=== PATIENT | female | born 1960 | race Caucasian/White ===

== ENCOUNTER 2017-10-20 15:24 | Emergency (ER) | payer BC ==
[2017-10-20] MEDS ORDERED: KETOROLAC 30 MG/ML INJ ONE (16:39)
[2017-10-20] MEDS ORDERED: CYCLOBENZAPRINE 10 MG TAB ONE (16:39)
--- NOTE | 2017-10-20 16:41 | EDPHYS ---
Physician Documentation [facility] Name: Jana Fraser Age: 57 yrs Sex: Female : 1960 Arrival Date: 10/20/2017 Time: 15:27 Bed 30 Private MD: Ansley Irby K ED Physician Dioni Joseph HPI: 10/20 16:39 This 57 yrs old Female presents to ER via Ambulatory with complaints of Low kb Back Pain. 16:39 The patient presents with pain that is acute, and tenderness. The symptoms are located kb in the low back. The pain does not radiate. The problem was sustained when bending over. Onset: The symptoms/episode began/occurred 4 day(s) ago. Modifying factors: The patient symptoms are alleviated by nothing, the patient symptoms are aggravated by bending, reaching in front of her. Associated signs and symptoms: The patient has no apparent associated signs or symptoms. Severity of symptoms: At their worst the symptoms were moderate, in the emergency department the symptoms have improved, mildly. The patient has experienced similar episodes in the past, a few times. The patient has not recently seen a physician. Historical: - Allergies: 15:44 sulfamethoxazole-trimethoprim; ph - Home Meds: 15:44 amlodipine oral [Active]; Lisinopril Oral [Active]; ph - PMHx: 15:44 Hypertension; ph - PSHx: 15:44 Appendectomy; ph - Immunization history:: Adult Immunizations up to date. - Social history:: Smoking status: Patient/guardian denies using tobacco. - Ebola Screening: : No symptoms or risks identified at this time. ROS: 16:38 Constitutional: Negative for fever, chills, and weight loss, Cardiovascular: Negative kb for chest pain, palpitations, and edema, Respiratory: Negative for shortness of breath, cough, wheezing, and pleuritic chest pain, Abdomen/GI: Negative for abdominal pain, nausea, vomiting, diarrhea, and constipation, : Negative for injury, bleeding, discharge, and swelling, MS/Extremity: Negative for injury and deformity, Skin: Negative for injury, rash, and discoloration, Neuro: Negative for headache, weakness, numbness, tingling, and seizure. 16:38 Back: Positive for pain with movement, of the low back area, Negative for injury or acute deformity, decreased range of motion, radiated pain. Exam: 16:38 Constitutional: This is a well developed, well nourished patient who is awake, alert, kb and in no acute distress. Head/Face: Normocephalic, atraumatic. Chest/axilla: Normal chest wall appearance and motion. Nontender with no deformity. No lesions are appreciated. Cardiovascular: Regular rate and rhythm with a normal S1 and S2. No gallops, murmurs, or rubs. Normal PMI, no JVD. No pulse deficits. Respiratory: Lungs have equal breath sounds bilaterally, clear to auscultation and percussion. No rales, rhonchi or wheezes noted. No increased work of breathing, no retractions or nasal flaring. Abdomen/GI: Soft, non-tender, with normal bowel sounds. No distension or tympany. No guarding or rebound. No evidence of tenderness throughout. Skin: Warm, dry with normal turgor. Normal color with no rashes, no lesions, and no evidence of cellulitis. MS/ Extremity: Pulses equal, no cyanosis. Neurovascular intact. Full, normal range of motion. Neuro: Awake and alert, GCS 15, oriented to person, place, time, and situation. Cranial nerves II-XII grossly intact. Motor strength 5/5 in all extremities. Sensory grossly intact. Cerebellar exam normal. Normal gait. 16:38 Back: pain, that is mild, that is moderate, of the low back area, ROM is normal, normal spinal alignment noted. Vital Signs: 15:42 BP 129 / 68; Pulse 83; Resp 18; Temp 98.5; Pulse Ox 98% on R/A; Weight 79.38 kg; Height ph 5 ft. 0 in. (152.40 cm); Pain 7/10; 15:42 Body Mass Index 34.18 (79.38 kg, 152.40 cm) ph MDM: 16:11 Patient medically screened. kb 16:37 Data reviewed: vital signs, nurses notes. Data interpreted: Pulse oximetry: on room air kb is 98 %. Interpretation: normal. Counseling: I had a detailed discussion with the patient and/or guardian regarding: the historical points, exam findings, and any diagnostic results supporting the discharge/admit diagnosis, the need for outpatient follow up, a family practitioner, to return to the emergency department if symptoms worsen or persist or if there are any questions or concerns that arise at home. Administered Medications: 16:35 Drug: TORadol 60 mg Route: IM; Site: right gluteus; sv 16:52 Follow up: Response: No adverse reaction sv 16:35 Drug: Flexeril 10 mg Route: PO; sv 16:52 Follow up: Response: No adverse reaction sv Disposition: 10/21 07:00 Co-signature as Attending Physician, Dioni Joseph MD I agree with the assessment and michael plan of care. Disposition: 10/20/17 16:41 Discharged to Home. Impression: Low back pain. - Condition is Stable. - Discharge Instructions: Back Injury Prevention, [id number], Back Pain, Adult, Zutt-jy-Tetk, Back Exercises, [id number]. - Prescriptions for Cyclobenzaprine 10 mg Oral Tablet - take 1 tablet by ORAL route every 8 hours As needed; 21 tablet. Diclofenac Sodium 75 mg Oral Tablet, Delayed Release (E.C.) - take 1 tablet by ORAL route 2 times per day As needed; 30 tablet. - Medication Reconciliation Form, Thank You Letter, Antibiotic Education, Prescription Opioid Use form. - Follow up: Emergency Department; When: As needed; Reason: Worsening of condition. Follow up: Ansley Irby MD; When: 2 - 3 days; Reason: Recheck today's complaints, Continuance of care, Re-evaluation by your physician. Signatures: Tanja Laureano FNP-Kavitha HARTLEY-Denise Brady RN RN sv Anderson, Corey, MD MD cha Hall, Patricia RN RN ph Corrections: (The following items were deleted from the chart) 10/20 16:53 16:41 10/20/2017 16:41 Discharged to Home. Impression: Low back pain. Condition is sv Stable. Forms are Medication Reconciliation Form, Thank You Letter, Antibiotic Education, Prescription Opioid Use. Follow up: Emergency Department; When: As needed; Reason: Worsening of condition. Follow up: Ansley Irby; When: 2 - 3 days; Reason: Recheck today's complaints, Continuance of care, Re-evaluation by your physician. kb
--- NOTE | 2017-10-20 16:41 | ER ---
Nurse's Notes [facility] Name: Jana Fraser Age: 57 yrs Sex: Female : 1960 Arrival Date: 10/20/2017 Time: 15:27 Bed 30 Private MD: Ansley Irby K Diagnosis: Low back pain Presentation: 10/20 15:39 Presenting complaint: Patient states: " My back went out on when I bent over ph to pick something up. This has happened before and usually I can doctor myself and it'll go away but this time it hasn't." Pt reports pain in lower back that radiates to L buttocks, also reports nausea, denies vomiting. Transition of care: patient was not received from another setting of care. Onset of symptoms was October 20, 2017. Risk Assessment: Do you want to hurt yourself or someone else? Patient reports no desire to harm self or others. Initial Sepsis Screen: Does the patient meet any 2 criteria? No. Patient's initial sepsis screen is negative. Does the patient have a suspected source of infection? No. Patient's initial sepsis screen is negative. Care prior to arrival: Medication(s) given: 3 Aleeves at 1300. 15:39 Method Of Arrival: Ambulatory ph 15:39 Acuity: GAURANG 4 ph Historical: - Allergies: 15:44 sulfamethoxazole-trimethoprim; ph - Home Meds: 15:44 amlodipine oral [Active]; Lisinopril Oral [Active]; ph - PMHx: 15:44 Hypertension; ph - PSHx: 15:44 Appendectomy; ph - Immunization history:: Adult Immunizations up to date. - Social history:: Smoking status: Patient/guardian denies using tobacco. - Ebola Screening: : No symptoms or risks identified at this time. Screenin:13 Abuse screen: Denies threats or abuse. Denies injuries from another. Nutritional sv screening: No deficits noted. Tuberculosis screening: No symptoms or risk factors identified. Fall Risk None identified. Assessment: 16:14 General: Appears uncomfortable, well developed, Behavior is calm, cooperative, sv appropriate for age, Pt ambulated to the room. Pain: Complains of pain in low back area Pain currently is 7 out of 10 on a pain scale. Neuro: Level of Consciousness is awake, alert, obeys commands, Oriented to person, place, time, situation, Moves all extremities. Full function Gait is steady, Speech is normal. Respiratory: Respiratory effort is even, unlabored, Respiratory pattern is regular, symmetrical. Derm: Skin is pink, warm \\T\\ dry. Musculoskeletal: Range of motion: intact in all extremities. 16:52 Reassessment: Patient appears in no apparent distress at this time. No changes from sv previously documented assessment. Patient and/or family updated on plan of care and expected duration. Pain level reassessed. Patient is alert, oriented x 3, equal unlabored respirations, skin warm/dry/pink. Vital Signs: 15:42 BP 129 / 68; Pulse 83; Resp 18; Temp 98.5; Pulse Ox 98% on R/A; Weight 79.38 kg; Height ph 5 ft. 0 in. (152.40 cm); Pain 7/10; 15:42 Body Mass Index 34.18 (79.38 kg, 152.40 cm) ph ED Course: 15:27 Patient arrived in ED. sb2 15:28 Ansley Irby MD is Private Physician. sb2 15:42 Triage completed. ph 15:44 Arm band placed on. ph 16:11 Tanja Laureano, ESPERANZA is PHCP. kb 16:11 Dioni Joseph MD is Attending Physician. kb 16:13 Denise Espana, LUIS is Primary Nurse. sv 16:13 Patient has correct armband on for positive identification. Bed in low position. Call sv light in reach. Adult w/ patient. Door closed. Head of bed elevated. 16:40 Ansley Irby MD is Referral Physician. kb 16:52 No provider procedures requiring assistance completed. Patient did not have IV access sv during this emergency room visit. Administered Medications: 16:35 Drug: TORadol 60 mg Route: IM; Site: right gluteus; sv 16:52 Follow up: Response: No adverse reaction sv 16:35 Drug: Flexeril 10 mg Route: PO; sv 16:52 Follow up: Response: No adverse reaction sv Outcome: 16:41 Discharge ordered by . kb 16:52 Discharged to home ambulatory, with family. sv 16:52 Condition: stable 16:52 Discharge instructions given to patient, Instructed on discharge instructions, follow up and referral plans. medication usage, Demonstrated understanding of instructions, follow-up care, medications, Prescriptions given X 2. 16:53 Patient left the ED. sv Signatures: Tanja Laureano, COLTC NAEEM-Denise Brady RN RN Haley Cohen, RN RN Favio, Maryse gr2
[2017-10-20 16:56] VITALS: BP 129/68; TEMP 98.5; O2SAT 98
== END 2017-10-20 16:53 | disposition home or self-care (01) ==
LOC: ER 15:24
DX: M54.5 Low back pain (principal); Z88.2 Allergy status to sulfonamides; I10 Essential (primary) hypertension
CPT/HCPCS: 96372; 99283

== ENCOUNTER 2022-04-08 10:49 | Emergency (ER) | payer OTHER ==
--- OUTSIDE RECORDS SUMMARY | 2022-04-08 10:51 | XMS REPORT | Continuity of Care Document ---
:1960 Author Organization [facility] t Address [address] [place] [address] Care Team Providers Name Role Phone Sissy Yu MA Attending Clinician Unavailable Lab, Adc Fam Pob I Attending Clinician Unavailable Clarissa Toro Attending Clinician CLARISSA TORO Attending Clinician Unavailable Doctor Unassigned, [place] Attending Clinician Unavailable Payers Payer Name Policy Type Policy Number Effective Date Expiration Date S ource Problems This patient has no known problems. Allergies, Adverse Reactions, Alerts Allergy Allergy Status Severity Reaction(s) Onset Inactive Treating Comm ents Source Name Type Date Date Clinician NO KNOWN Drug Active Univers ALLERGIE Class it[facility] of [facility] Social History Social Habit Start Date Stop Date Quantity Comments [facility] to SARS[facility]2 Not sure [facility] [place] [facility] Smoking Status Start Date Stop Date Source Unknown if ever smoked [facility] y [facility] Medications This patient has no known medications. Procedures This patient has no known procedures. Encounters Start End Encounter Admission Attending Care Care Encounter Source Date/Time Date/Time Type Type Clinicians Facility Department ID 2019-11-14 2019-11-14 Telephone CHAD Yu [id number] Univers 00:00:00 00:00:00 Sissy [facility] [id number] ity [facility] [id number] Michel as Profpepeio [phone] [place] [address] 2019-11-11 2019-11-11 Laboratory Lab, Adc Fam Pob I [facility] [id number] Univers 14:00:05 14:20:05 Only Clarissa Toro [facility] [id number] [facility] [place] [id number] Michel as Evelyn [phone] Ga dical [facility] [address] 2019-11-11 2019-11-11 Outpatient R CORTEZ, [facility] [id number] Univers 13:40:00 13:40:00 CLARISSA loera of [facility] 2019-11-11 2019-11-11 Letter Doctor NAZANIN [id number] Univers 00:00:00 00:00:00 (Out) Unassigned, JEFF [id number] ity of [place] [facility] [id number] Michel as [phone] [address] Results Test Description Test Time Test Comments Results Result Sour e Comments SCR MAMM 2019-08-25 - SCR MAMM BILATERAL BILATERAL KRISTINE 13:28:38 KRISTINE CAD CAD DIGITAL DIGITALBILATERAL DIGITAL SCREENING MAMMOGRAM 3D/2D WITH CAD: 08/17/2019CLINICAL: Asymptomatic. Digital breast tomosynthesis was performed in addition to routine CC and MLO views. Current mammographic images were evaluated by either a [employer] M-Vu or a [employer] ImageChecker CAD (computer aided detection system). Comparison is made to exams dated 08/14/2018 mammogram, 01/11/2017 mammogram - [facility], and 10/07/2008 mammogram - [facility]. The tissue of both breasts is heterogeneously dense. This may lower the sensitivity of mammography. No suspicious mass, architectural distortion, malignant type calcification, or lymph node abnormality detected. Breast architecture is stable compared to prior exams.IMPRESSION: NEGATIVEThere is no mammographic evidence of malignancy. Resume annual screening mammography in one year. Leandro Gastelum M.D. et/penrad:08/25/2019 13:28:38 Entry: cl - 08/25/2019 13:28:38Imaging Technologist: Grace Martini MM, [facility] sent: BIRADS 1-2 Normal Mammogram BI-RADS: 1 Negative SCR MAMM 2018-08-15 - SCR MAMM BILATERAL BILATERAL KRISTINE 15:15:44 KRISTINE CAD CAD DIGITAL DIGITALBILATERAL DIGITAL SCREENING MAMMOGRAM 3D/2D WITH CAD: 08/14/2018CLINICAL: Asymptomatic. Digital breast tomosynthesis was performed in addition to routine CC and MLO views. Current mammographic images were evaluated by either a [employer] M-Vu or a [employer] ImageChecker CAD (computer aided detection system). Comparison is made to exams dated 01/11/2017 mammogram - [facility] and 10/07/2008 mammogram - [facility]. The tissue of both breasts is heterogeneously dense. This may lower the sensitivity of mammography. No suspicious mass, architectural distortion, malignant type calcification, or lymph node abnormality detected. Breast architecture is stable compared to prior exams.IMPRESSION: NEGATIVEThere is no mammographic evidence of malignancy. Resume annual screening mammography in one year. Angi blair/caesar:08/15/2018 15:15:44 Attending Technologist: Celo Saez MM, [facility] MammographyImaging Technologist: Jeanie Ellington MM, [facility] Mammographyletter sent: BIRADS 1-2 Normal Mammogram BI-RADS: 1 Negative
[2022-04-08] MEDS ORDERED: HYDROCODONE/APAP 5/325 MG TAB ONE (11:05)
--- NOTE | 2022-04-08 11:48 | RAD REPORT ---
EXAM DESCRIPTION: RAD - Wrist Left 3 View - 04/08/2022 11:27 am CLINICAL HISTORY: wrist pain, swelling Pain COMPARISON: No comparisons FINDINGS: Impacted fracture of the distal radius is present with significant surrounding soft tissue swelling. No dislocation.
--- NOTE | 2022-04-08 13:24 | EDPHYS ---
Physician Documentation [facility] Name: Jana Fraser Age: 62 yrs Sex: Female : 1960 Arrival Date: 04/08/2022 Time: 10:51 Bed 13 Private MD: MAGDALENO Physician Dioni Joseph HPI: 04/08 10:55 This 62 yrs old Female presents to ER via Ambulatory with complaints of Fall Injury, jmm Hand Injury, Wrist Injury. 10:55 Onset: The symptoms/episode began/occurred acutely, yesterday. Is a 62-year-old female jmm with history of hypertension and hyperlipidemia the presents emerged part with complaints of left wrist pain which occurred after a fall while dancing last night. Patient denies back pain, headache, neck pain.. Historical: - Allergies: 10:59 sulfamethoxazole-trimethoprim; ll1 - PMHx: 10:59 Hypertension; Hypercholesterolemia; ll1 - PSHx: 10:59 None; ll1 - Immunization history:: Client reports receiving the 2nd dose of the Covid vaccine. - Social history:: Smoking status: Patient reports the use of cigarette tobacco products, smokes one pack cigarettes per day. ROS: 10:55 Constitutional: Negative for fever, chills, and weight loss, Cardiovascular: Negative jm for chest pain, palpitations, and edema, Respiratory: Negative for shortness of breath, cough, wheezing, and pleuritic chest pain. 10:55 MS/extremity: Positive for pain, swelling. 10:55 All other systems are negative. Exam: 10:55 Constitutional: This is a well developed, well nourished patient who is awake, alert, jmm and in no acute distress. Head/Face: atraumatic. Eyes: EOMI, no conjunctival erythema appreciated ENT: Moist Mucus Membranes Neck: Trachea midline, Supple Chest/axilla: Normal chest wall appearance and motion. Cardiovascular: Regular rate and rhythm. No edema appreciated Respiratory: Normal respirations, no respiratory distress appreciated Abdomen/GI: Non distended Back: Normal ROM Skin: General appearance color normal 10:55 Musculoskeletal/extremity: Swelling noted to the left wrist, full radial pulse, compartments are soft, sensation intact, neurovascular intact. 10:55 Skin: Appearance: Color: normal in color. 10:55 Neuro: Motor: is normal. 10:55 Psych: Behavior/mood is pleasant, cooperative. Vital Signs: 11:00 BP 130 / 75; Pulse 80; Resp 17; Temp 98.3; Pulse Ox 95% on R/A; Weight 69.85 kg; Height ll1 4 ft. 11 in. (149.86 cm); Pain 9/10; 11:00 BP 113 / 52; Pulse 86; Resp 16; Pulse Ox 98% ; ko1 11:42 BP 124 / 66; Pulse 71; Resp 16; Pulse Ox 95% ; ko1 12:06 BP 134 / 70; Pulse 71; Resp 16; Pulse Ox 95% on R/A; eh3 11:00 Body Mass Index 31.10 (69.85 kg, 149.86 cm) ll1 MDM: 10:55 Patient medically screened. [facility] 13:22 Data reviewed: vital signs, nurses notes. Counseling: I had a detailed discussion with [facility] the patient and/or guardian regarding: the historical points, exam findings, and any diagnostic results supporting the discharge/admit diagnosis, the need for outpatient follow up, to return to the emergency department if symptoms worsen or persist or if there are any questions or concerns that arise at home. 15:20 I considered the following discharge prescriptions or medication management in the [facility] emergency department Medications were administered in the Emergency Department. See MAR. Independent interpretation of the following test(s) in the Emergency Department X-Ray: My interpretation is Left distal radius fracture. 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 04/08 10:59 Order name: Wrist Left (3 View) XRAY [facility] 04/08 11:48 Order name: RAD; Complete Time: 12:18 [facility] 04/08 11:44 Order name: Sugar Tong Forearm Splint; Complete Time: 12:21 [facility] 04/08 11:44 Order name: Sling; Complete Time: 12:21 [facility] Administered Medications: 11:00 Drug: HYDROcodone-acetaminophen 5 mg-325 mg 1 tabs Route: PO; ko1 12:06 Follow up: Response: Pain is decreased eh3 Disposition Summary: 04/08/22 13:24 Discharge Ordered Location: Home [facility] Condition: Stable [facility] Diagnosis - Distal Radial Fracture [facility] Followup: [facility] - With: Aurelio Miranda MD - When: 2 - 3 days - Reason: Recheck today's complaints, Continuance of care, Re-evaluation by your physician Discharge Instructions: - Discharge Summary Sheet jmm - Radial Fracture [facility] Forms: - Medication Reconciliation Form [facility] - Thank You Letter dex - Antibiotic Education [facility] - Prescription Opioid Use [facility] Prescriptions: - Tylenol-Codeine #3 300 mg-30 mg Oral - take 1 tablet by ORAL route every 4-6 hours As needed; 20 tablet; Refills: 0, jmm Product Selection Permitted Signatures: Dispatcher [employer] EDDioni Jeong MD MD cha Mickail, Joel, PA PA jmm Lewis, Lynsay, RN RN ll1 Rosanna Sanchez RN RN ko1 Mila Oliveira RN eh3
--- NOTE | 2022-04-08 13:24 | ER ---
Nurse's Notes [facility] Name: Jana Fraser Age: 62 yrs Sex: Female : 1960 Arrival Date: 04/08/2022 Time: 10:51 Bed 13 Private MD: Diagnosis: Distal Radial Fracture Presentation: 04/08 11:00 Chief complaint: Patient states: Trip and fall while dancing last night 2200. L wrist ll1 pain, swelling, bruising since. No LOC. Coronavirus screen: Vaccine status: Patient reports receiving the 2nd dose of the covid vaccine. Client denies travel out of the [place] in the last 14 days. At this time, the client does not indicate any symptoms associated with coronavirus-19. Ebola Screen: Patient denies travel to an Ebola-affected area in the 21 days before illness onset. Initial Sepsis Screen: Does the patient meet any 2 criteria? No. Patient's initial sepsis screen is negative. Does the patient have a suspected source of infection? Yes: Bone or joint infection. Risk Assessment: Do you want to hurt yourself or someone else? Patient reports no desire to harm self or others. Onset of symptoms was April 07, 2022. 11:00 Method Of Arrival: Ambulatory ll1 11:00 Acuity: GAURANG 3 ll1 Triage Assessment: 11:01 General: Appears uncomfortable, Behavior is calm, cooperative, appropriate for age. ll1 Pain: Complains of pain in left arm Pain currently is 9 out of 10 on a pain scale. Quality of pain is described as aching, throbbing, Aggravated by increased activity, repositioning. Derm: Bruising that is dark purple. Musculoskeletal: Circulation, motion, and sensation intact. Capillary refill < 3 seconds, Swelling present in L wrist Reports pain in left arm. Historical: - Allergies: 10:59 sulfamethoxazole-trimethoprim; ll1 - PMHx: 10:59 Hypertension; Hypercholesterolemia; ll1 - PSHx: 10:59 None; ll1 - Immunization history:: Client reports receiving the 2nd dose of the Covid vaccine. - Social history:: Smoking status: Patient reports the use of cigarette tobacco products, smokes one pack cigarettes per day. Screenin:00 [facility] ED Fall Risk Assessment (Adult) History of falling in the last 3 months, ko1 including since admission Yes- single mechanical fall (1 pt) Confusion or Disorientation No (0 pts) Intoxicated or Sedated No (0 pts) Impaired Gait No (0 pts) Mobility Assist Device Used No (0 pt) Altered Elimination No (0 pt) Score/Fall Risk Level 0 - 2 = Low Risk Oriented to surroundings, Maintained a safe environment, Educated pt \T\ family on fall prevention, incl call for assistance when getting out of bed, Assessed \T\ reinforced patient's understanding of fall precautions, Provided non-skid footwear, Hourly rounding (assess needs \T\ fall precautionary measures) done, Used ambulatory aids as needed (educated on \T\ assisted with), Used gait belt as appropriate. Abuse screen: Denies threats or abuse. Denies injuries from another. Nutritional screening: No deficits noted. Tuberculosis screening: No symptoms or risk factors identified. Assessment: 11:00 General: Appears in no apparent distress. uncomfortable, Behavior is calm, cooperative, ko1 appropriate for age. Pain: Complains of pain in left arm. Neuro: No deficits noted. Cardiovascular: No deficits noted. Respiratory: No deficits noted. GI: No deficits noted. : No deficits noted. EENT: No deficits noted. Derm: No deficits noted. Musculoskeletal: Circulation, motion, and sensation intact. Bony deformity noted of left wrist Swelling present in left arm Reports. Injury Description: Bruise sustained to left arm Deformity sustained to left wrist. 12:06 General: Appears in no apparent distress. comfortable, Behavior is calm, cooperative, eh3 appropriate for age. Pain: Complains of pain in left wrist. Neuro: Level of Consciousness is awake, alert, obeys commands, Oriented to person, place, time, situation. Cardiovascular: Capillary refill < 3 seconds Patient's skin is warm and dry. Respiratory: Airway is patent Respiratory effort is even, unlabored, Respiratory pattern is regular, symmetrical. GI: No signs and/or symptoms were reported involving the gastrointestinal system. Abdomen is round non-distended. : No signs and/or symptoms were reported regarding the genitourinary system. EENT: No signs and/or symptoms were reported regarding the EENT system. Derm: No signs and/or symptoms reported regarding the dermatologic system. Skin is pink, warm \T\ dry. Musculoskeletal: No signs and/or symptoms reported regarding the musculoskeletal system. Circulation, motion, and sensation intact. Range of motion: limited in left wrist Swelling present in left wrist. 13:00 Reassessment: Patient appears in no apparent distress at this time. Patient and/or eh3 family updated on plan of care and expected duration. Pain level reassessed. Patient is alert, oriented x 3, equal unlabored respirations, skin warm/dry/pink. Vital Signs: 11:00 BP 130 / 75; Pulse 80; Resp 17; Temp 98.3; Pulse Ox 95% on R/A; Weight 69.85 kg; Height ll1 4 ft. 11 in. (149.86 cm); Pain 9/10; 11:00 BP 113 / 52; Pulse 86; Resp 16; Pulse Ox 98% ; ko1 11:42 BP 124 / 66; Pulse 71; Resp 16; Pulse Ox 95% ; ko1 12:06 BP 134 / 70; Pulse 71; Resp 16; Pulse Ox 95% on R/A; eh3 11:00 Body Mass Index 31.10 (69.85 kg, 149.86 cm) ll1 ED Course: 10:51 Patient arrived in ED. mr 10:54 Rosanna Sanchez, LUIS is Primary Nurse. ko1 10:54 Castro Rivera PA is PHCP. jmm 10:54 Dioni Joseph MD is Attending Physician. jmm 10:59 Arm band placed on Patient placed in an exam room, on a stretcher. ll1 11:00 Patient has correct armband on for positive identification. Bed in low position. Call ko1 light in reach. Side rails up X 1. Pulse ox on. NIBP on. 11:01 Triage completed. ll1 11:21 Awaiting radiology results. ko1 12:21 Wrist Left (3 View) XRAY Sent. mm9 12:21 Orthoglass splint: Sugar tong splint applied on left arm. Sling applied to left arm. mm9 13:00 Patient did not have IV access during this emergency room visit. eh3 13:23 Aurelio Miranda MD is Referral Physician. jmm 13:52 No provider procedures requiring assistance completed. eh3 Administered Medications: 11:00 Drug: HYDROcodone-acetaminophen 5 mg-325 mg 1 tabs Route: PO; ko1 12:06 Follow up: Response: Pain is decreased eh3 Medication: 13:00 VIS not applicable for this client. eh3 Outcome: 13:00 Discharged to home ambulatory. eh3 13:00 Condition: stable 13:00 Discharge instructions given to patient, Instructed on discharge instructions, follow up and referral plans. no drinking with medication, no driving heavy equipment, medication usage, Demonstrated understanding of instructions, follow-up care, medications, Prescriptions given X 1. 13:24 Discharge ordered by MD. kowalski 13:52 Patient left the ED. 3 Signatures: Castro Rivera PA PA jmm Rivera, Mary mr Lewis, Lynsay, RN RN ll1 Mila Oliveira RN RN 3 Rosanna Sanchez RN RN ko1 Maritza Jimenez mm9
[2022-04-08 13:58] VITALS: TEMP 98.3; O2SAT 95
[2022-04-08 14:00] VITALS: BP 134/70
== END 2022-04-08 13:52 | disposition home or self-care (01) ==
LOC: ER 10:49
DX: S52.502A Unspecified fracture of the lower end of left radius, initial encounter for closed fracture (principal); I10 Essential (primary) hypertension; F17.210 Nicotine dependence, cigarettes, uncomplicated; Z88.2 Allergy status to sulfonamides
CPT/HCPCS: 99284